=== PATIENT | female | born 1975 | race American Indian/Alaskan Native ===

== ENCOUNTER 2020-10-03 00:15 | Emergency (ER) | payer OTHER ==
--- NOTE | 2020-10-03 00:40 | EDM.PDOC ---
ED HPI GENERAL MEDICAL PROBLEM - General Stated Complaint: A BOIL UNKNOWN LOCATION/DETAILS Time Seen by Provider: 10/03/20 00:25 Source of Information: Reports: Patient History Limitations: Reports: No Limitations - History of Present Illness INITIAL COMMENTS - FREE TEXT/NARRATIVE: ED with c/o boil to right armpit that is getting bigger, wsa seen in clinic on Monday and started on Bactrim. No fever or chills, not noting redness. No further testing or follow up scheduled. Right Upper Thoracic Pain Score (Numeric/FACES): 9 - Related Data Allergies Allergy/AdvReac Type Severity Reaction Status Date / Time No Known Allergies Allergy Verified 10/03/20 00:28 Home Meds: Home Meds Sulfamethoxazole/Trimethoprim [Bactrim Ds Tablet] 1 each PO BID 10/03/20 [History] Past Medical History - Past Health History Medical/Surgical History: Denies Medical/Surgical History Social & Family History - Tobacco Use Tobacco Use Status *Q: Never Tobacco User Second Hand Smoke Exposure: No - Recreational Drug Use Recreational Drug Use: Yes Drug Use in Last 12 Months: Yes Recreational Drug Type: Reports: Marijuana/Hashish ED ROS GENERAL - Review of Systems Review Of Systems: Comprehensive ROS is negative, except as noted in HPI. ED EXAM, SKIN/RASH Exam: See Below Exam Limited By: No Limitations General Appearance: Alert, Mild Distress Eye Exam: Bilateral Eye: EOMI Ears: Normal External Exam Nose: Normal Inspection Throat/Mouth: Normal Inspection Head: Atraumatic, Normocephalic Neck: Normal Inspection Respiratory/Chest: No Respiratory Distress, Lungs Clear Cardiovascular: Normal Peripheral Pulses, Regular Rate, Rhythm Back Exam: Full Range of Motion Neurological: Alert, Oriented, Normal Cognition Psychiatric: Normal Affect, Normal Mood Skin: Warm, Dry, Other (small 1cm erythematous lesion to right and left anterior waist punctate center, no drainage, non tender present greater than one week.) Location, Skin: Axillary (tender golf ball size mass mid axilly iwth few surronding enlarged lymph nodes no redness or thickening of surrounding area. Outer right brest tender no masses palpable.) Course - Vital Signs Last Recorded V/S: Last Vital Signs Temp 98.4 F 10/03/20 00:20 Pulse 78 10/03/20 00:20 Resp 18 10/03/20 00:20 BP 105/75 10/03/20 00:20 Pulse Ox 97 10/03/20 00:20 - Re-Assessments/Exams Free Text/Narrative Re-Assessment/Exam: 10/03/20 01:13 Discussed need for further follow up to evaluate mass. Ultrasound is indicated due to proximity of breast tissue. . Departure - Departure Time of Disposition: 00:37 Disposition: Home, Self-Care 01 Condition: Good Clinical Impression: Mass of right axilla - Discharge Information *PRESCRIPTION DRUG MONITORING PROGRAM REVIEWED*: No *COPY OF PRESCRIPTION DRUG MONITORING REPORT IN PATIENT PENNY: No Referrals: Francisco Figueroa [Primary Care Provider] - Forms: ED Department Discharge Additional Instructions: continue antibiotic alternate tylenol and ibuprofen every 4 hours as needed for discomfort follow up in clinic on monday to arrange ultrasound of area and mammogram Sepsis Event Note (ED) - Evaluation Sepsis Screening Result: No Definite Risk - Focused Exam Vital Signs: Vital Signs Temp Pulse Resp BP Pulse Ox 10/03/20 00:20 98.4 F 78 18 105/75 97
== END 2020-10-03 00:44 | disposition home or self-care (01) ==
LOC: DL.ED 00:15
CPT/HCPCS: 99282; 99283